=== PATIENT | male | born 2000 | race Hispanic/Latino ===

== ENCOUNTER 2018-03-23 21:56 | Inpatient (IN) | payer BC ==
[~2018-03-23 21:56] MED LIST: ISOVUE-370 76%-LOCM 1 ML ONE
[2018-03-23] MEDS ORDERED: Cefepime 2 GM/10 ML SYR ONE ×2 (22:14→22:17)
[2018-03-23] MEDS ORDERED: Adacel (T-DAP) 0.5 ML VIAL ONE (22:14)
[2018-03-23 22:16] LABS: #Basophils 0.1 thou/uL (0.0-0.2); #Eosinphils 0.2 thou/uL (0.0-0.7); #Lymphocytes 3.4 thou/uL (1.20-3.40); #Monocytes 0.5 thou/uL (0.11-0.59); #Neutrophils 10.4 thou/uL (1.40-6.50); %Basophils 0.8 % (0.0-1.0); %Eosinophils 1.4 % (0.0-10.0); %Lymphocytes 23.1 % (28.0-48.0); %Monocytes 3.4 % (0.0-4.0); %Neutrophils 71.3 % (31.0-61.0); Hemoglobin 12.9 g/dL (14.0-18.0); Mean Corpuscular HGB CONC 34.4 g/dL (32.0-36.0); Mean Corpuscular Hemoglobin 32.4 pg (25.0-35.0); Mean Corpuscular Volume 94.1 fl (77.0-87.0); Mean Platelet Volume 6.6 fL (7.4-10.4); Platelet Count 264 thou/uL (130-400); Red Blood Cell (RBC) Count 3.98 mill/uL (4.00-5.20); White Blood Cell (WBC) Count 14.5 thou/uL (4.8-10.8)
[2018-03-23 22:26] LABS: INR-International Normal Ratio 1.1; Prothrombin Time 14.6 SEC (12.0-14.7)
[2018-03-23] MEDS ORDERED: CEFAZOLIN/Water 2 GM/20 ML SYRINGE ONE (22:26)
[2018-03-23] MEDS ORDERED: CEFAZOLIN 1 GM, Syringe 2.5 ML in Sterile Water 7.5 ML SLOW IVP SCH (22:30)
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
[2018-03-23] MEDS ORDERED: Ondansetron ODT 4 MG TAB ONE (22:39)
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
[2018-03-23] MEDS ORDERED: Morphine 4 MG/ML VIAL ONE (22:57)
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
[2018-03-23 23:02] LABS: ALT (SGPT) 102 U/L (8-55); AST (SGOT) 142 U/L (10-45); Albumin 3.9 g/dL (3.5-5.0); Alcohol Less than 10 mg/dL (Less than 10); Alkaline Phosphatase 73 U/L (Less than 750); Anion Gap 18 mmol/L (10-20); BUN (Urea Nitrogen) 11 mg/dL (8.4-21.0); Bilirubin, Total 0.4 mg/dL (0.2-1.2); Calc. Creatinine Clearance 0 mL/min (70-130); Calcium 8.4 mg/dL (7.8-10.44); Carbon Dioxide 20 mmol/L (22-29); Chloride 105 mmol/L (98-107); Estimated GFR-MDRD Greater than 90; Globulin 2.6 g/dL (2.4-3.5); Glucose 141 mg/dL (70-105); Lipase 45 U/L (8-78); Potassium 3.5 mmol/L (3.5-5.1); Protein, Total 6.5 g/dL (6.0-8.3); Sodium 139 mmol/L (136-145)
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
[2018-03-23 23:11] LABS: Bilirubin Negative (Negative); Blood, Urine Large (Negative); Clarity CLEAR (Clear); Glucose, Urine (Dipstick) Negative (Negative); Leukocyte Negative (Negative); Nitrite Negative (Negative); Protein, Urine (Dipstick) 30 mg/dL (Neg-Trace); Specific Gravity, Urine 1.022 (1.002-1.036); Urobilinogen 0.2 mg/dL (0.2-1.0); pH, Urine 6.5 (5.0-9.0)
[2018-03-23 23:13] LABS: Bacteria/HPF None Seen HPF (None Seen); Hyaline Casts/LPF 0-3 HYALINE CAST LPF (0-3 Hyaline); Pathc Cast-AUWi Flag 0.14 (0-2.49); RBC/HPF 21-50 HPF (0-3); Squamous Epithelial 0-3 HPF (0-3)
[2018-03-23] MEDS ORDERED: Lidocaine 1% w/Epinephrine 1:100K 20 ML VIAL ONE (23:27)
[2018-03-24] MEDS ORDERED: Morphine 4 MG/ML VIAL ONE (00:03)
[2018-03-24] MEDS ORDERED: Ondansetron HCl/PF 4 MG/2 ML Vial IVP PRN ×2 (00:42→17:14)
[2018-03-24] MEDS ORDERED: Promethazine HCl 25 MG/ML VIAL IM PRN ×3 (00:42→17:14)
[2018-03-24] MEDS ORDERED: hydrALAZINE 20 MG/ML VIAL SLOW IVP PRN (00:42)
[2018-03-24] MEDS ORDERED: Dextrose 5% in Water 1,000 ML IV PRN (00:42)
[2018-03-24] MEDS ORDERED: Ondansetron ODT 4 MG TAB PO PRN (00:42)
[2018-03-24] MEDS ORDERED: Dextrose 50% Abboject 50 ML SYRINGE SLOW IVP PRN (00:42)
[2018-03-24 01:01] VITALS: BMI 24.3
[2018-03-24] MEDS ORDERED: Morphine 4 MG/ML VIAL SLOW IVP PRN (01:15)
[2018-03-24] MEDS: Acetaminophen 1,000 MG in Premix Bag 1 BAG IVPB SCH ×4 (01:21→21:15)
[2018-03-24] MEDS: Ketorolac Tromethamine 30 MG/ML VIAL IVP SCH ×4 (01:22→21:16)
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
[2018-03-24] MEDS ORDERED: CEFAZOLIN 1 GM VIAL SLOW IVP SCH (02:00)
[2018-03-24] MEDS: Sodium Chloride 0.9% 1,000 ML IV SCH ×3 (02:52→17:45)
[2018-03-24] MEDS: CEFAZOLIN 1 GM, Syringe 2.5 ML in Sterile Water 7.5 ML SLOW IVP SCH ×3 (03:03→21:17)
[2018-03-24 05:56] LABS: #Lymphocytes 0.7 thou/uL (1.20-3.40); #Monocytes 0.8 thou/uL (0.11-0.59); #Neutrophils 9.3 thou/uL (1.40-6.50); %Eosinophils 0.3 % (0.0-10.0); %Monocytes 7.5 % (0.0-4.0); %Neutrophils 86.2 % (31.0-61.0); Hemoglobin 11.4 g/dL (14.0-18.0); Mean Corpuscular Hemoglobin 32.3 pg (25.0-35.0); Mean Corpuscular Volume 95.1 fl (77.0-87.0); Platelet Count 181 thou/uL (130-400); RBC Distribution Width 11.1 % (11.5-14.5); Red Blood Cell (RBC) Count 3.54 mill/uL (4.00-5.20); White Blood Cell (WBC) Count 10.8 thou/uL (4.8-10.8)
[2018-03-24 06:02] LABS: Anion Gap 12 mmol/L (10-20); BUN (Urea Nitrogen) 10 mg/dL (8.4-21.0); Calc. Creatinine Clearance 160 mL/min (70-130); Calcium 7.8 mg/dL (7.8-10.44); Carbon Dioxide 24 mmol/L (22-29); Chloride 105 mmol/L (98-107); Estimated GFR-MDRD Greater than 90; Glucose 121 mg/dL (70-105); Potassium 4.4 mmol/L (3.5-5.1); Sodium 137 mmol/L (136-145)
[2018-03-24] MEDS ORDERED: CEFAZOLIN/Water 2 GM/20 ML SYRINGE SLOW IVP SCH (07:45)
--- NOTE | 2018-03-24 08:08 | RAD ---
SINGLE VIEW OF THE CHEST: Comparison: None. History: Follow up right sided pneumothorax. FINDINGS: Single view of the chest shows a normal sized cardiomediastinal silhouette. There is no evidence of c onsolidation, mass or pleural effusion. No pneumothorax is visualized. IMPRESSION: No evidence of acute cardiopulmonary disease. POS: [facility]
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
[2018-03-24] MEDS: Famotidine 40 MG/4 ML VIAL SLOW IVP SCH ×2 (10:32→21:34)
[2018-03-24] MEDS ORDERED: CEFAZOLIN/Water 2 GM/20 ML SYRINGE ONE (13:36)
[2018-03-24] MEDS ORDERED: Fentanyl 250 MCG/5 ML VIAL ONE (13:56)
[2018-03-24] MEDS ORDERED: Dexamethasone 20 MG/5 ML VIAL ONE (14:31)
[2018-03-24] MEDS ORDERED: PROPOFOL 200 MG/20 ML VIAL ONE (14:31)
[2018-03-24] MEDS ORDERED: Ondansetron HCl/PF 4 MG/2 ML Vial ONE (14:31)
[2018-03-24] MEDS ORDERED: Ketorolac Tromethamine 30 MG/ML VIAL ONE (14:31)
[2018-03-24] MEDS ORDERED: Succinylcholine Chloride 20 MG/ML 10 ml SYRINGE FS ONE (14:31)
[2018-03-24] MEDS ORDERED: Lidocaine 1% PF 5 ML VIAL ONE (14:31)
[2018-03-24] MEDS ORDERED: Lidocaine 1% w/Epinephrine 1:200K 30 ML VIAL ONE (16:41)
[2018-03-24] MEDS ORDERED: Oxymetazoline HCl 0.05% ( 15 ML ) ONE (16:41)
[2018-03-24] MEDS ORDERED: Lidocaine 1% (PF) 30 ML VIAL ONE (16:56)
[2018-03-24] MEDS ORDERED: EPINEPHrine 1 MG/ML AMP ONE (16:56)
[2018-03-24] MEDS ORDERED: Promethazine HCl 25 MG/ML VIAL SLOW IVP PRN (17:14)
[2018-03-24] MEDS ORDERED: Bacitracin Zinc Ointment 30 gm TUBE ONE (17:16)
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
[2018-03-24] MEDS ORDERED: HYDROmorphone 0.5 MG/0.5 ML SYRINGE ONE (19:00)
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
--- NOTE | 2018-03-24 20:48 | RAD ---
PORTABLE CHEST: 03/24/18 COMPARISON: Earlier examination of the same day. HISTORY: Followup of pneumothorax. Heart size and mediastinum are within normal limits. I cannot definitely appreciate any right sided p neumothorax on this exam. IMPRESSION: Stable exam. No definitive evidence for pneumothorax. POS: [facility]
[2018-03-24] MEDS: Maxitrol 0.1% Opth Oint 3.5 GM TUBE TOP SCH (21:16)
[2018-03-24] MEDS: CEFAZOLIN/Water 2 GM/20 ML SYRINGE SLOW IVP SCH (21:17)
[2018-03-25] MEDS: Acetaminophen 1,000 MG in Premix Bag 1 BAG IVPB SCH (02:20)
[2018-03-25] MEDS: Sodium Chloride 0.9% 1,000 ML IV SCH ×3 (02:21→19:46)
[2018-03-25] MEDS: Morphine 4 MG/ML VIAL SLOW IVP PRN ×2 (03:39→14:09)
[2018-03-25] MEDS: CEFAZOLIN/Water 2 GM/20 ML SYRINGE SLOW IVP SCH (05:23)
--- NOTE | 2018-03-25 07:24 | RAD ---
INTRAOPERATIVE FLUOROSCOPY: Date: 03/24/18 HISTORY: Forearm fracture. Open reduction and internal fixation left arm. COMPARISON: None. EXPOSURE: 16 seconds. 0.27 mGy*cm^2. FINDINGS: Intraoperative fluoroscopy provided for Dr. Zheng. Two images demonstrate an internal fixation pl ate with screws traversing the distal radial diaphysis. IMPRESSION: Fluoroscopy as above. POS: [facility]
--- NOTE | 2018-03-25 07:25 | RAD ---
INTRAOPERATIVE FLUOROSCOPY: Date: 03/24/18 HISTORY: Right tibia fracture. Open reduction and internal fixation with insertion of nail. EXPOSURE: 4.01 mGy*cm^2. 118.6 seconds. FINDINGS: Nine intraoperative fluoroscopic images demonstrate placement of an internal medullary jake with a pro ximal interlocking screw and two distal interlocking screws. Fracture lucency with minimal displaceme nt is identified. IMPRESSION: Fluoroscopy as above. POS: [facility]
--- NOTE | 2018-03-25 08:51 | RAD ---
CHEST 1 VIEW: HISTORY: Pneumothorax. Followup. COMPARISON: 03/24/18. FINDINGS: Cardiac silhouette is magnified by projection. Pulmonary vasculature unremarkable. Mediastinum midl ine. Vertically oriented artifact lies just to the right of the tracheal air column. No lobar conso lidation or evidence of pneumothorax. IMPRESSION: No evidence of recurrent pneumothorax. POS: [facility]
[2018-03-25] MEDS: Maxitrol 0.1% Opth Oint 3.5 GM TUBE TOP SCH ×2 (09:50→19:48)
[2018-03-25] MEDS: Enoxaparin Sodium 40 MG/0.4 ML SYRINGE SC SCH (09:55)
[2018-03-25] MEDS: Famotidine 40 MG/4 ML VIAL SLOW IVP SCH ×2 (09:55→19:48)
[2018-03-25] MEDS ORDERED: HYDROcodone/Acetaminophen 5/325 mg Tablet PO PRN (14:38)
[2018-03-25] MEDS ORDERED: Cyclobenzaprine 10 MG TAB PO PRN (14:38)
[2018-03-25] MEDS ORDERED: traMADol HCl 50 MG TAB PO PRN ×2 (14:38)
[2018-03-25] MEDS ORDERED: Ibuprofen 800 MG TAB PO SCH (15:15)
[2018-03-25] MEDS: Acetaminophen 500 MG TAB PO SCH ×2 (16:14→19:47)
[2018-03-25] MEDS ORDERED: Dexamethasone 4 mg/ml Vial SLOW IVP SCH (18:30)
[2018-03-25] MEDS: Ibuprofen 800 MG TAB PO SCH (21:55)
[2018-03-26] MEDS: Acetaminophen 500 MG TAB PO SCH ×6 (00:45→21:45)
[2018-03-26] MEDS: Dexamethasone 4 mg/ml Vial SLOW IVP SCH ×2 (00:45→05:33)
[2018-03-26] MEDS: Sodium Chloride 0.9% 1,000 ML IV SCH ×2 (00:59→15:41)
[2018-03-26] MEDS: Ibuprofen 800 MG TAB PO SCH ×3 (05:33→21:45)
[2018-03-26] MEDS: Enoxaparin Sodium 40 MG/0.4 ML SYRINGE SC SCH (09:20)
[2018-03-26] MEDS: Famotidine 40 MG/4 ML VIAL SLOW IVP SCH (11:30)
[2018-03-26] MEDS: Maxitrol 0.1% Opth Oint 3.5 GM TUBE TOP SCH ×2 (11:32→21:45)
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
[2018-03-26] MEDS: Famotidine 20 MG TAB PO SCH (21:44)
[2018-03-27] MEDS: Acetaminophen 500 MG TAB PO SCH ×6 (00:33→21:14)
[2018-03-27] MEDS: Ibuprofen 800 MG TAB PO SCH ×3 (05:16→21:14)
[2018-03-27] MEDS ORDERED: Sodium Chloride 0.9% 1,000 ML IV SCH (08:30)
[2018-03-27 09:03] LABS: #Eosinphils 0.1 thou/uL (0.0-0.7); #Lymphocytes 2.1 thou/uL (1.20-3.40); #Monocytes 0.4 thou/uL (0.11-0.59); #Neutrophils 4.2 thou/uL (1.40-6.50); %Basophils 0.1 % (0.0-1.0); %Eosinophils 1.3 % (0.0-10.0); %Monocytes 5.5 % (0.0-4.0); %Neutrophils 62.1 % (31.0-61.0); Hemoglobin 6.5 g/dL (14.0-18.0); Mean Corpuscular HGB CONC 34.7 g/dL (32.0-36.0); Mean Corpuscular Volume 95.3 fl (77.0-87.0); Mean Platelet Volume 6.8 fL (7.4-10.4); Platelet Count 191 thou/uL (130-400); RBC Distribution Width 11.2 % (11.5-14.5); Red Blood Cell (RBC) Count 1.98 mill/uL (4.00-5.20); White Blood Cell (WBC) Count 6.8 thou/uL (4.8-10.8)
[2018-03-27] MEDS: Famotidine 20 MG TAB PO SCH ×2 (09:08→21:14)
[2018-03-27] MEDS: Enoxaparin Sodium 40 MG/0.4 ML SYRINGE SC SCH (09:09)
[2018-03-27] MEDS: Maxitrol 0.1% Opth Oint 3.5 GM TUBE TOP SCH ×2 (09:17→21:16)
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
[2018-03-27] MEDS: Ferrous Sulfate 325 MG TAB PO SCH (17:03)
[2018-03-27] MEDS: Ascorbic Acid 500 mg Chewable Tablet PO SCH (21:14)
[2018-03-27] MEDS: Senokot S 8.6-50 MG TAB PO SCH (21:14)
[2018-03-27 21:40] LABS: Hemoglobin 8.2 g/dL (14.0-18.0)
[2018-03-27] MEDS ORDERED: Hydrocortisone Sod Succ/PF 100 mg/2 ml Vial IVP SCH (22:00)
[2018-03-28] MEDS: Hydrocortisone Sod Succ/PF 100 mg/2 ml Vial IVP SCH ×4 (01:00→18:59)
[2018-03-28] MEDS: Acetaminophen 500 MG TAB PO SCH ×6 (01:01→20:05)
[2018-03-28] MEDS: Ibuprofen 800 MG TAB PO SCH ×3 (05:25→22:54)
[2018-03-28 05:48] LABS: #Monocytes 0.2 thou/uL (0.11-0.59); #Neutrophils 4.3 thou/uL (1.40-6.50); %Basophils 0.3 % (0.0-1.0); %Eosinophils 0.5 % (0.0-10.0); %Monocytes 4.3 % (0.0-4.0); %Neutrophils 76.9 % (31.0-61.0); Hemoglobin 9.1 g/dL (14.0-18.0); Mean Corpuscular HGB CONC 35.2 g/dL (32.0-36.0); Mean Corpuscular Hemoglobin 33.1 pg (25.0-35.0); Platelet Count 210 thou/uL (130-400); RBC Distribution Width 11.7 % (11.5-14.5); Red Blood Cell (RBC) Count 2.74 mill/uL (4.00-5.20); White Blood Cell (WBC) Count 5.6 thou/uL (4.8-10.8)
[2018-03-28 05:56] LABS: Anion Gap 10 mmol/L (10-20); BUN (Urea Nitrogen) 15 mg/dL (8.4-21.0); Calc. Creatinine Clearance 180 mL/min (70-130); Calcium 8.5 mg/dL (7.8-10.44); Carbon Dioxide 25 mmol/L (22-29); Chloride 105 mmol/L (98-107); Estimated GFR-MDRD Greater than 90; Glucose 128 mg/dL (70-105); Magnesium 2.2 mg/dL (1.7-2.2); Phosphorus 4.7 mg/dL (2.3-4.7); Potassium 4.7 mmol/L (3.5-5.1); Sodium 135 mmol/L (136-145)
[2018-03-28] MEDS ORDERED: Polyethylene Glycol 3350 17 GM Packet PO SCH (09:00)
[2018-03-28] MEDS: Enoxaparin Sodium 40 MG/0.4 ML SYRINGE SC SCH (09:12)
[2018-03-28] MEDS: Ferrous Sulfate 325 MG TAB PO SCH ×2 (09:12→17:25)
[2018-03-28] MEDS: Famotidine 20 MG TAB PO SCH ×2 (09:12→20:06)
[2018-03-28] MEDS: Senokot S 8.6-50 MG TAB PO SCH ×2 (09:13→20:06)
[2018-03-28] MEDS: Ascorbic Acid 500 mg Chewable Tablet PO SCH ×2 (09:13→20:06)
[2018-03-28] MEDS: Maxitrol 0.1% Opth Oint 3.5 GM TUBE TOP SCH ×2 (09:22→20:06)
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
[2018-03-29] MEDS: Hydrocortisone Sod Succ/PF 100 mg/2 ml Vial IVP SCH ×3 (00:14→14:34)
[2018-03-29] MEDS: Acetaminophen 500 MG TAB PO SCH ×4 (00:15→14:34)
[2018-03-29] MEDS: Ibuprofen 800 MG TAB PO SCH ×2 (06:15→14:37)
[2018-03-29] MEDS: Enoxaparin Sodium 40 MG/0.4 ML SYRINGE SC SCH (09:24)
[2018-03-29] MEDS: Ferrous Sulfate 325 MG TAB PO SCH (09:24)
[2018-03-29] MEDS: Ascorbic Acid 500 mg Chewable Tablet PO SCH (09:24)
[2018-03-29] MEDS: Famotidine 20 MG TAB PO SCH (09:26)
[2018-03-29] MEDS: Senokot S 8.6-50 MG TAB PO SCH (09:33)
[2018-03-29] MEDS: Maxitrol 0.1% Opth Oint 3.5 GM TUBE TOP SCH (09:33)
[2018-03-29 12:28] VITALS: BP 114/64; TEMP 97.8
[2018-03-30] MEDS ORDERED: predniSONE 20 MG TAB PO SCH (08:00)
== END 2018-03-29 17:34 | DRG 958 ==
LOC: ERS 21:56 → SURG A 03-24 00:28
PROVIDERS: ADMIT Surgery; ATTEND Surgery
PROC: 0QSG06Z Reposition Right Tibia with Intramedullary Internal Fixation Device, Open Approach (ICD-10-PCS; principal; 2018-03-24)
PROC: 0PSJ04Z Reposition Left Radius with Internal Fixation Device, Open Approach (ICD-10-PCS; 2018-03-24)
PROC: 0KQ10ZZ Repair Facial Muscle, Open Approach (ICD-10-PCS; 2018-03-24)
PROC: [UNRECOGNIZED PROCEDURE] (2018-03-24)
PROC: 09QM0ZZ Repair Nasal Septum, Open Approach (ICD-10-PCS; 2018-03-24)
PROC: 0NSBXZZ Reposition Nasal Bone, External Approach (ICD-10-PCS; 2018-03-24)
PROC: 30233N1 Transfusion of Nonautologous Red Blood Cells into Peripheral Vein, Percutaneous Approach (ICD-10-PCS; 2018-03-27)
DX: S27.0XXA Traumatic pneumothorax, initial encounter (principal); S36.112A Contusion of liver, initial encounter; S82.201A Unspecified fracture of shaft of right tibia, initial encounter for closed fracture; S02.31XA Fracture of orbital floor, right side, initial encounter for closed fracture; S52.302A Unspecified fracture of shaft of left radius, initial encounter for closed fracture; E27.40 Unspecified adrenocortical insufficiency; D62 Acute posthemorrhagic anemia; S02.2XXA Fracture of nasal bones, initial encounter for closed fracture; G93.89 Other specified disorders of brain; S01.111A Laceration without foreign body of right eyelid and periocular area, initial encounter; S01.21XA Laceration without foreign body of nose, initial encounter; S82.401A Unspecified fracture of shaft of right fibula, initial encounter for closed fracture; V23.4XXA Motorcycle driver injured in collision with car, pick-up truck or van in traffic accident, initial encounter; Y92.410 Unspecified street and highway as the place of occurrence of the external cause; Z88.6 Allergy status to analgesic agent
CPT/HCPCS: 36415; 36430; 70450; 70486; 71045; 71260; 72125; 72170; 74177; 76001; 80048; 80053; 80307; 81003; 81015; 82533; 83690; 83735; 84100; 85025; 85610; 85730; 86850; 86900; 86901; 90471; 90715; 93005; 96361; 96374; 96375; 96376; A4216; C1713; C1769; G0390; G8978-GP-CN; G8979-GP-CJ; G8987-GO-CK; G8988-GO-CI; J0131; J0171; J0690; J0692; J1100; J1170; J1650; J1720; J1885; J2001; J2270; J2405; J2704; J3010; P9016; Q0162

== ENCOUNTER 2018-04-07 12:22 | Outpatient (CLI) | payer BC ==
--- NOTE | 2018-04-07 13:54 | RAD ---
TWO VIEWS CHEST: Date: 04-07-18 Comparison: 03-25-18 History: Evaluate right sided pneumothorax. FINDINGS: No pneumothorax, pleural fluid, focal consolidation, or alveolar edema. Heart and mediastinal contour s are grossly unremarkable. IMPRESSION: No pneumothorax seen. POS: [facility]
== END 2018-04-07 12:23 | disposition home or self-care (01) ==
LOC: RAD 12:22
PROVIDERS: ATTEND Physician Assistant
DX: J93.9 Pneumothorax, unspecified (principal); S36.112D Contusion of liver, subsequent encounter; D62 Acute posthemorrhagic anemia
CPT/HCPCS: 71046